=== PATIENT | female | born 1990 | race Hispanic/Latino ===

== ENCOUNTER 2016-08-28 13:36 | Emergency (ER) | payer SELFPAY ==
[2016-08-28 14:10] VITALS: BP 116/79
[2016-08-28 14:47] LABS: Urine Drugs of Abuse Note Disclamer
[2016-08-28 14:56] LABS: Bilirubin,Urine NEG (Negative); Blood,Urine SM (Negative); Ketones,Urine NEG (Negative); Leukocyte Esterase,Urine LG (Negative); Mucus,Urine 2+ /HPF; Nitrite,Urine NEG (Negative)
[2016-08-28 15:59] LABS: Alanine Aminotransferase 15 units/L (7-56); Albumin 4.2 g/dL (3.9-5); Albumin/Globulin Ratio 1.3 %; Alkaline Phosphatase 58 units/L (35-129); Anion Gap 18 mmol/L; Bilirubin,Total 0.2 mg/dL (0.1-1.2); Blood Urea Nitrogen 7 mg/dL (7-17); Calcium 9.1 mg/dL (8.4-10.2); Carbon Dioxide 24 mmol/L (22-30); Chloride 104.3 mmol/L (98-107); Glucose 87 mg/dL (65-100); Potassium 3.5 mmol/L (3.6-5.0); Sodium 143 mmol/L (137-145); Total Protein 7.5 g/dL (6.3-8.2)
[2016-08-28 16:04] LABS: Eosinophils % (Auto) 4.5 % (0.0-4.3); Hematocrit 36.7 % (30.3-42.9); Hemoglobin 11.8 gm/dl (10.1-14.3); Mean Corpuscular HGB Conc 32 % (30-34); Mean Corpuscular Volume 76 fl (79-97); Platelet Count 275 K/mm3 (140-440); Red Blood Count 4.84 M/mm3 (3.65-5.03); Red Cell Distribution Width 16.8 % (13.2-15.2); White Blood Count 6.8 K/mm3 (4.5-11.0)
[2016-08-28 16:09] LABS: Lipase 20 units/L (13-60)
[2016-08-28 16:10] LABS: Mean Corpuscular Hemoglobin 24 pg (28-32)
[2016-08-29] MEDS ORDERED: ROCEPHIN IM ONE (00:25)
[2016-08-29] MEDS ORDERED: XYLOCAINE 1% MPF 5 mL INFILTRATI ONE (00:25)
[2016-08-29] MEDS ORDERED: ZITHROMAX PO ONE (00:25)
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
== END 2016-08-29 00:47 | disposition home or self-care (01) ==
LOC: ED 13:36
DX: T74.21XA Adult sexual abuse, confirmed, initial encounter (principal)
CPT/HCPCS: 36415; 80053; 80307; 81001; 81025; 83690; 85025; 96372; 99283; J0696

== ENCOUNTER 2017-11-15 18:57 | Outpatient (CLI) | payer MEDICAID ==
[2017-11-15 19:59] VITALS: BP 123/73
== END 2017-11-15 20:45 | disposition home or self-care (01) ==
LOC: TRG 18:57
PROVIDERS: ATTEND Obstetrics & Gynecology
DX: O47.1 False labor at or after 37 completed weeks of gestation (principal); Z3A.37 37 weeks gestation of pregnancy
CPT/HCPCS: 59025

== ENCOUNTER 2017-11-17 21:51 | Outpatient (CLI) | payer MEDICAID ==
[2017-11-17 22:13] VITALS: BP 120/76
== END 2017-11-18 00:30 | disposition home or self-care (01) ==
LOC: TRG 21:51
PROVIDERS: ATTEND Obstetrics & Gynecology
DX: O47.1 False labor at or after 37 completed weeks of gestation (principal); Z3A.38 38 weeks gestation of pregnancy
CPT/HCPCS: 59025

== ENCOUNTER 2017-12-07 05:27 | Inpatient (IN) | payer MEDICAID ==
[2017-12-07] MEDS ORDERED: XYLOCAINE 2% INFILTRATI ONE (08:02)
[2017-12-07] MEDS ORDERED: STADOL IV PRN (08:02)
[2017-12-07] MEDS ORDERED: ePHEDrine SULFATE IV PRN ×2 (08:02→14:00)
[2017-12-07] MEDS ORDERED: BRETHINE SUB-Q PRN (08:02)
[2017-12-07] MEDS ORDERED: BRETHINE IVP PRN (08:02)
[2017-12-07] MEDS ORDERED: NARCAN 0.4 MG/1 ML IV PRN (08:02)
[2017-12-07] MEDS ORDERED: PHENERGAN PO PRN (08:02)
[2017-12-07] MEDS ORDERED: ZOFRAN IV PRN (08:02)
[2017-12-07] MEDS ORDERED: SUBLIMAZE IV PRN (08:02)
--- NOTE | 2017-12-07 08:02 | History and Physical Report ---
History of Present Illness Date of examination: 12/07/17 Chief complaint: Labor History of present illness: Pt is a 27yo WF EDC 11/30/17; EGA 41 0/7 weeks presents to L&D complaining of RUC's q 3-4 mins. She received late care at [facility] since 27 weeks and course has been unremarkable. records are available and GBS is Negative. 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 Family/Genetic History: diabetes, hypertension Social history: no significant social history, single - Obstetrical History Expected Date of Delivery: 11/30/17 Actual Gestation: 41 Week(s) 0 Day(s) : 7 Medications and Allergies Allergies Allergy/AdvReac Type Severity Reaction Status Date / Time No Known Allergies Allergy Unverified 01/19/14 18:30 Home Medications Medication Instructions Recorded Confirmed Last Taken Type Ferrous Sulfate 1 tab PO DAILY 01/19/14 01/19/14 12/06/17 History Pnv No.95/Ferrous Fum/Folic AC 1 tab PO QDAY 12/07/17 12/07/17 12/06/17 History [ Vitamins Tablet] Review of Systems All systems: negative - Vital Signs Vital signs: Vital Signs Temp Resp 97.8 F 20 12/07/17 05:57 12/07/17 05:57 Temp Pulse Resp BP Pulse Ox 97.6 F 82 20 128/80 97 12/07/17 07:44 12/07/17 07:58 12/07/17 07:44 12/07/17 07:48 12/07/17 07:58 - Physical Exam Breasts: Positive: deferred Cardiovascular: Regular rate Lungs: Positive: Clear to auscultation Abdomen: Positive: normal appearance Genitourinary (Female): Positive: normal external genitalia Uterus: Positive: enlarged Extremities: Positive: normal - Obstetrical FHR: category 1 Uterine Contraction Monitor Mode: External Cervical Dilatation: 4 (per nurse) Cervical Effacement Percentage: 80 (per nurse) station: -3 Uterine Contraction Pattern: Regular Uterine Tone Measurement Phase: Contraction Uterine Contraction Intensity: Moderate Results Result Diagrams: 12/07/17 08:10 All other labs normal. Assessment and Plan - Patient Problems (1) 41 weeks gestation of Onset Date: 12/07/17 Current Visit: Yes Status: Acute Plan to address problem: A: IUP @ 41 0/7 weeks in labor GBS Negative P: Admit to L&D for expectant vaginal delivery
[2017-12-07 08:45] LABS: Hematocrit 36.5 % (30.3-42.9); Hemoglobin 11.8 gm/dl (10.1-14.3); Mean Corpuscular HGB Conc 32 % (30-34); Mean Corpuscular Hemoglobin 26 pg (28-32); Mean Corpuscular Volume 81 fl (79-97); Platelet Count 240 K/mm3 (140-440); Red Blood Count 4.48 M/mm3 (3.65-5.03)
[2017-12-07 08:53] LABS: Red Cell Distribution Width 28.6 % (13.2-15.2)
[2017-12-07] MEDS ORDERED: PITOCin/NS 30 UNIT/500ML 30 UNITS/500 ML BAG IV SCH (09:00)
[2017-12-07] MEDS ORDERED: PITOCin/NS 20 UNIT/1000ML DRIP 20 UNITS/1,000 ML BAG IV SCH (09:00)
--- NOTE | 2017-12-07 09:50 | Event Note ---
Date: 12/07/17 S: Feeling pressure O; VE 5-/-1 CAT I tracing, irregular contractions A: Active labor P; Pitocin augmentation
[2017-12-07] MEDS: LACTATED RINGERS 1,000 ML IV SCH ×3 (11:43→14:56)
[2017-12-07] MEDS: PITOCin/NS 30 UNIT/500ML 30 UNITS/500 ML BAG IV SCH ×2 (11:44→15:36)
[2017-12-07] MEDS ORDERED: NARCAN 2 MG/2 ML IV PRN (14:00)
[2017-12-07] MEDS ORDERED: fentaNYL-BUPIV 2 MCG/ML-0.125% 200 MCG/100 ML BAG EPIDURAL SCH (14:00)
--- NOTE | 2017-12-07 14:01 | Anesthesia Consultation ---
Anesthesia Consult and Med Hx Date of service: 12/07/17 - Airway Anesthetic Teeth Evaluation: Good ROM Head & Neck: Adequate Mental/Hyoid Distance: Adequate Mallampati Class: Class II Intubation Access Assessment: Possibly Difficult - Pulmonary Exam CTA: Yes - Cardiac Exam Cardiac Exam: No Murmur - Pre-Operative Health Status ASA Pre-Surgery Classification: ASA3 Proposed Anesthetic Plan: Epidural - Pulmonary Hx Asthma: No COPD: No Hx Pneumonia: No - Cardiovascular System Hx Hypertension: No - Central Nervous System Hx Seizures: Yes (as a child) Hx Psychiatric Problems: No - Endocrine Hx Renal Disease: No Hx End Stage Renal Disease: No Hx Hypothyroidism: No Hx Hyperthyroidism: No - Hematic Hx Anemia: Yes Hx Sickle Cell Disease: No - Other Systems Hx Alcohol Use: No Hx Substance Use: No
--- NOTE | 2017-12-07 14:14 | Event Note ---
Date: 12/07/17 O: VE -1, AROM clear fluid, FSE applied. Epidural in. CAT I tracing. Pit at 12mu A: 41 weeks active labor P; Expect
[2017-12-07] MEDS ORDERED: TUCKS PAD TP PRN (16:23)
[2017-12-07] MEDS ORDERED: BENADRYL PO PRN (16:23)
[2017-12-07] MEDS ORDERED: TYLENOL PO PRN (16:23)
[2017-12-07] MEDS ORDERED: NORCO 5/325 PO PRN (16:23)
[2017-12-07] MEDS ORDERED: DULCOLAX PR PRN (16:23)
[2017-12-07] MEDS ORDERED: LANSINOH TP PRN (16:23)
--- NOTE | 2017-12-07 16:29 | Procedure Note ---
OB Delivery Note - Delivery Date of Delivery: 12/07/17 Surgeon: MOISE DUMONT Estimated blood loss: 100cc - Vaginal Delivery presentation: vertex Delivery position: OA Intrapartum events: none Delivery induction: none Delivery augmentation: rupture of membranes, pitocin Delivery monitor: external FHT, external uterine, internal FHT Route of delivery: Indicators for instrumentation: nonreassuring FHR tracing Delivery placenta: spontaneous Episiotomy: none Delivery laceration: none Anesthesia: epidural Delivery comments: of a viable of a viable female 8 # 3oz on 12/07/17 @ 1608 over intact perineum. Apagars 8/9. Placenta delivered 3 VCI. Mother and baby doing well. - A at 1 minute: 8 at 5 minutes: 9 (8# 3oz) Infant Gender: Female
[2017-12-07] MEDS ORDERED: SODIUM CHLORIDE FLUSH SYRINGE 10 ML IV NR (17:00)
[2017-12-07] MEDS ORDERED: MINERAL OIL PO PRN (22:00)
[2017-12-07] MEDS: MOTRIN PO SCH (23:37)
[2017-12-08 05:24] LABS: Hematocrit 33.3 % (30.3-42.9); Hemoglobin 11.2 gm/dl (10.1-14.3)
[2017-12-08] MEDS: MOTRIN PO SCH (05:49)
--- NOTE | 2017-12-08 10:02 | Progress Note ---
Assessment and Plan A: PPD#1 s/p Stable P: Routine PP care Anticipate discharge this afternoon Subjective - Subjective Date of service: 12/08/17 Principal diagnosis: Interval history: See H&P and delivery note Patient reports: appetite normal, voiding normally, pain well controlled, flatus , ambulating normally Sharon: doing well Objective - Vital Signs Latest vital signs: Vital Signs Temp Pulse Resp BP BP Pulse Ox 12/08/17 07:31 97.7 F 74 16 108/79 96 12/08/17 05:49 18 12/07/17 23:37 18 12/07/17 23:30 98.7 F 76 18 111/78 12/07/17 19:30 98.7 F 75 16 121/81 12/07/17 19:22 18 12/07/17 18:15 97.4 F L 82 18 136/85 12/07/17 17:37 75 126/73 12/07/17 17:22 73 138/77 12/07/17 17:07 73 132/76 12/07/17 16:52 76 137/76 12/07/17 16:37 78 131/72 12/07/17 16:35 81 140/78 12/07/17 16:22 85 124/68 12/07/17 16:10 101 H 100 12/07/17 16:07 83 128/71 12/07/17 16:05 109 H 100 12/07/17 16:00 91 H 100 12/07/17 15:55 78 100 12/07/17 15:52 82 136/73 12/07/17 15:50 85 100 12/07/17 15:45 85 100 12/07/17 15:40 94 H 100 12/07/17 15:38 78 136/73 12/07/17 15:35 86 100 12/07/17 15:30 78 99 12/07/17 15:25 94 H 100 12/07/17 15:22 87 136/76 12/07/17 15:20 80 100 12/07/17 15:15 86 100 12/07/17 15:10 78 100 12/07/17 15:08 75 133/73 12/07/17 15:05 78 100 12/07/17 15:00 88 100 12/07/17 14:55 80 100 12/07/17 14:52 78 133/70 07/04/18 14:50 80 100 12/07/17 14:45 87 100 12/07/17 14:40 81 100 12/07/17 14:38 83 135/71 12/07/17 14:35 91 H 100 12/07/17 14:30 98 H 100 12/07/17 14:25 95 H 100 12/07/17 14:24 86 134/75 12/07/17 14:20 98 H 99 12/07/17 14:15 95 H 99 12/07/17 14:10 85 98 12/07/17 14:07 93 H 137/64 12/07/17 14:05 94 H 91/51 98 12/07/17 14:02 91 H 120/63 12/07/17 14:00 101 H 110/59 100 12/07/17 13:58 104 H 134/77 12/07/17 13:56 89 135/67 12/07/17 13:55 80 100 12/07/17 13:54 86 131/71 12/07/17 13:52 88 132/71 12/07/17 13:50 89 100 Intake and Output 12/07/17 12/08/17 12/08/17 23:59 07:59 15:59 Intake Total 300 Output Total 600 1200 Balance -300 -1200 Intake: Intake, Free Water 300 Output: Urine 600 1200 Void 600 1200 Other: Total, Output Amount 600 800 # Voids Void 1 1 Estimated Blood Loss 100 - Exam Breasts: Present: normal Cardiovascular: Present: Regular rate, Normal S1 Lungs: Present: Clear to auscultation, Normal air movement Abdomen: Present: normal appearance, soft, normal bowel sounds. Absent: distention Vulva: both: normal Uterus: Present: firm, fundal height at umbilicus Extremities: Present: normal Deep Tendon Reflex Grade: Normal +2
--- NOTE | 2017-12-08 10:04 | Discharge Summary ---
Providers - Providers Date of Admission: 12/07/17 08:31 Date of discharge: 12/08/17 Attending physician: LUIS HURD Primary care physician: LUIS HURD Hospitalization Reason for admission: active labor, IUP at term Delivery: Procedure details: See delivery note Episiotomy: none Laceration: none Other procedures: none complications: none Discharge diagnosis: IUP at term delivered baby: female Condition at discharge: Good Disposition: DC-01 TO HOME OR SELFCARE Plan - Provider Discharge Summary Activity: routine, no sex for 6 weeks, no heavy lifting 4 weeks, no strenuous exercise Diet: routine Instructions: routine Additional instructions: [] Smoking cessation referral if applicable(refer to patient education folder for contact #) [] Refer to [facility] Booklet Call your doctor immediately for: * Fever > 100.5 * Heavy vaginal bleeding ( >1 pad per hour) * Severe persistent headache * Shortness of breath * Reddened, hot, painful area to leg or breast * Drainage or odor from incision. * Keep incision clean and dry at all times and follow doctor's instructions regarding bathing/showering - Follow up plan Follow up: LUIS HURD MD [Primary Care Provider] - 6 Weeks
[2017-12-08 19:56] VITALS: BP 119/76
== END 2017-12-08 19:05 | disposition home or self-care (01) | DRG 774 ==
LOC: TRG 05:27 → LD 08:31 → OB 18:46
PROVIDERS: ADMIT Obstetrics & Gynecology Gynecology; ATTEND Obstetrics & Gynecology Gynecology
PROC: 10E0XZZ Delivery of Products of Conception, External Approach (ICD-10-PCS; principal; 2017-12-07)
PROC: 10907ZC Drainage of Amniotic Fluid, Therapeutic from Products of Conception, Via Natural or Artificial Opening (ICD-10-PCS; 2017-12-07)
PROC: 3E0R3BZ Introduction of Anesthetic Agent into Spinal Canal, Percutaneous Approach (ICD-10-PCS; 2017-12-07)
PROC: 00HU33Z Insertion of Infusion Device into Spinal Canal, Percutaneous Approach (ICD-10-PCS; 2017-12-07)
DX: O24.92 Unspecified diabetes mellitus in childbirth (principal); O76 Abnormality in fetal heart rate and rhythm complicating labor and delivery; Z3A.41 41 weeks gestation of pregnancy; Z37.0 Single live birth; Z90.49 Acquired absence of other specified parts of digestive tract; Z83.3 Family history of diabetes mellitus; Z82.49 Family history of ischemic heart disease and other diseases of the circulatory system
CPT/HCPCS: 36415; 85014; 85018; 85027; 86592; 86850; 86900; 86901; 99211; G0463; J2590; J7120

== ENCOUNTER 2019-04-11 00:10 | Outpatient (CLI) | payer MEDICAID ==
[2019-04-11 01:17] LABS: Hematocrit 31.2 % (30.3-42.9); Hemoglobin 10.7 gm/dl (10.1-14.3); Mean Corpuscular HGB Conc 34 % (30-34); Mean Corpuscular Volume 81 fl (79-97); Platelet Count 199 K/mm3 (140-440); Red Blood Count 3.86 M/mm3 (3.65-5.03); Red Cell Distribution Width 16.5 % (13.2-15.2)
[2019-04-11 01:25] LABS: Bilirubin,Urine NEG (Negative); Blood,Urine NEG (Negative); Color,Urine Straw (Yellow); Protein,Urine <15 mg/dL mg/dL (Negative); Urobilinogen,Urine < 2.0 mg/dL (<2.0)
[2019-04-11 02:45] LABS: Alanine Aminotransferase 9 units/L (7-56); Uric Acid 3.8 mg/dL (3.5-7.6)
[2019-04-11 02:47] VITALS: BP 103/55
== END 2019-04-11 02:51 | disposition home or self-care (01) ==
LOC: TRG 00:10
PROVIDERS: ATTEND Obstetrics & Gynecology
DX: O26.893 Other specified pregnancy related conditions, third trimester (principal); Z3A.37 37 weeks gestation of pregnancy; R51 Headache; R11.2 Nausea with vomiting, unspecified; H53.8 Other visual disturbances
CPT/HCPCS: 36415; 59025; 81001; 82565; 83615; 84450; 84460; 84550; 85027

== ENCOUNTER 2019-05-02 04:45 | Inpatient (IN) | payer MEDICAID ==
[2019-05-02] MEDS ORDERED: LIDOCAINE (2%) 20 MG/1 ML VIAL 20 ML MDV INFILTRATI ONE (05:36)
[2019-05-02] MEDS ORDERED: MINERAL OIL 30 ML ORAL LIQD PO PRN (05:36)
[2019-05-02] MEDS ORDERED: ePHEDrine SULFATE 50 MG/1 ML INJ IV PRN (05:36)
[2019-05-02] MEDS ORDERED: TERBUTALINE 1 MG/1 ML INJ SUB-Q PRN (05:36)
[2019-05-02] MEDS ORDERED: fentaNYL 100 MCG/2 ML INJ IV PRN (05:36)
[2019-05-02] MEDS ORDERED: BUTORPHANOL 2 MG/1 ML INJ IV PRN (05:36)
[2019-05-02] MEDS ORDERED: ONDANSETRON 4 MG/2 ML INJ IV PRN ×2 (05:36→07:34)
[2019-05-02] MEDS ORDERED: TERBUTALINE 1 MG/1 ML INJ IVP PRN (05:36)
[2019-05-02] MEDS ORDERED: OXYTOCIN DRIP 30 UNITS/500 ML BAG IV SCH (06:00)
[2019-05-02] MEDS ORDERED: OXYTOCIN 20 UNIT/1000ML DRIP 20 UNITS/1,000 ML BAG IV SCH (06:00)
[2019-05-02] MEDS ORDERED: LACTATED RINGERS 1,000 ML IV SCH (06:00)
[2019-05-02 06:35] LABS: Hematocrit 33.5 % (30.3-42.9); Hemoglobin 11.1 gm/dl (10.1-14.3); Mean Corpuscular HGB Conc 33 % (30-34); Mean Corpuscular Volume 81 fl (79-97); Platelet Count 216 K/mm3 (140-440); Red Blood Count 4.14 M/mm3 (3.65-5.03); Red Cell Distribution Width 17.3 % (13.2-15.2)
--- NOTE | 2019-05-02 06:59 | History and Physical Report ---
History of Present Illness Date of examination: 05/02/19 Date of admission: 05/02/19 Chief complaint: Active labor History of present illness: 29 yo, @ 40 wks gestation, initiated care with [facility] at 12 wks. Her has been complicated by Elevated TSH level; Morbid obesity; rubella non-immune; and Vit D deficiency. She reports to [facility] with reports of regular painful ctxs for past 2 hrs. Reports + FM. Denies VB or LOF. Labs: A+, antibody negative; Rubella non-immune; VDRL non-reactive; HBsAg; HIV negative; Platelets 282k; Gc/Chlamydia negative; Hgb A1c 5.2; Vit D 13.7; MSAFP/Multiple markers negative; 1 hr Gtt 165; 3 hr Gtt 160, 130, 42; GBS negative. Past History Past Medical History: other (Obesity; Hx of GDM in 2013; PPD) Past Surgical History: D&C (2004) Family/Genetic History: diabetes (MGM), hypertension (MGM), other (Reneal failure- PGM; DVT - mother; Thyroid disorder - mother) - Obstetrical History Expected Date of Delivery: 05/02/19 Actual Gestation: 40 Week(s) 0 Day(s) : 8 Para: 8 Hx # Term Pregnancies: 7 Number of Pregnancies: 0 Spontaneous Abortions: 1 Induced : 0 Number of Living Children: 7 #1 Gender: Male (Twins) year: ,[birth year] Birthweight: 3.289 kg (7 lbs 8 ozs) Method of Delivery: Vaginal Gestational age at delivery: 38 Complications: none #2 Infant Gender: Male year: 2,008 Birthweight: 3.629 kg Method of Delivery: Vaginal Gestational age at delivery: 40 Complications: none #3 Infant Gender: Female year: 2,010 Birthweight: 4.082 kg Method of Delivery: Vaginal Gestational age at delivery: 39 Complications: none #4 Infant Gender: Male year: 2,012 Birthweight: 3.629 kg Method of Delivery: Vaginal Gestational age at delivery: 39 Complications: none #5 Gender: Female year: 2,014 Birthweight: 3.175 kg Method of Delivery: Vaginal Gestational age at delivery: 41 Complications: none #6 Gender: Female year: 2,018 Birthweight: 3.714 kg Method of Delivery: Vaginal Gestational age at delivery: 41 #7 year: 2,005 (SAB) Medications and Allergies Allergies Allergy/AdvReac Type Severity Reaction Status Date / Time No Known Allergies Allergy Unverified 01/19/14 18:30 Home Medications Medication Instructions Recorded Confirmed Last Taken Type Ferrous Sulfate 1 tab PO DAILY 01/19/14 12/07/17 12/06/17 History Pnv No.95/Ferrous Fum/Folic AC 1 tab PO QDAY 12/07/17 12/07/17 12/06/17 History [ Vitamins Tablet] Active Meds: Active Medications Butorphanol Tartrate (Stadol) 2 mg IV Q2H PRN PRN Reason: Pain , Severe (7-10) Ephedrine Sulfate (Ephedrine Sulfate) 10 mg IV Q2M PRN PRN Reason: Hypotension Fentanyl (Sublimaze) 100 mcg IV Q2H PRN PRN Reason: Labor Pain Last Admin: 05/02/19 06:16 Dose: 100 mcg Documented by: Oxytocin/Sodium Chloride (Pitocin/Ns 20 Unit/1000ml Drip) 20 units in 1,000 mls @ 125 mls/hr IV DIRECT TIMOTHY Oxytocin/Sodium Chloride (Pitocin/Ns 30 Unit/500ml) 30 units in 500 mls @ 1 mls /hr IV TITR TIMOTHY; Protocol Lactated Ringer's (Lactated Ringers) 1,000 mls @ 125 mls/hr IV DIRECT TIMOTHY Last Admin: 05/02/19 06:14 Dose: 125 mls/hr Documented by: Mineral Oil (Mineral Oil) 30 ml PO QHS PRN PRN Reason: Constipation Ondansetron HCl (Zofran) 4 mg IV Q8H PRN PRN Reason: Nausea And Vomiting Terbutaline Sulfate (Brethine) 0.25 mg SUB-Q ONCE PRN PRN Reason: Hyperstimulation/Hypertonicity Terbutaline Sulfate (Brethine) 0.25 mg IVP ONCE PRN PRN Reason: Hyperstimulation/Hypertonicity Review of Systems All systems: negative Genitourinary: contractions - Vital Signs Vital signs: Vital Signs Temp Resp 98 F 18 05/02/19 04:59 05/02/19 04:59 Temp Pulse Resp BP Pulse Ox 98 F 71 18 126/68 94 05/02/19 04:59 05/02/19 06:51 05/02/19 04:59 05/02/19 06:51 05/02/19 06:50 - Physical Exam Breasts: Positive: deferred Cardiovascular: Regular rate Lungs: Positive: Normal air movement Abdomen: Positive: other (gravid) Genitourinary (Female): Positive: normal external genitalia, normal perenium Vagina: Positive: normal moisture Uterus: Positive: enlarged (S=D) Extremities: Positive: normal Deep Tendon Reflex Grade: Normal +2 - Obstetrical FHR: category 1 Uterine Contraction Monitor Mode: External Cervical Dilatation: 7 Cervical Effacement Percentage: 80 station: 0 Uterine Contraction Frequency (min): 2-4 Uterine Contraction Pattern: Irregular Uterine Tone Measurement Phase: Resting Uterine Contraction Intensity: Strong/Firm Results Result Diagrams: 05/02/19 06:25 Abnormal lab results 05/02/19 Range/Units 06:25 MCH 27 L (28-32) pg RDW 17.3 H (13.2-15.2) % All other labs normal. Assessment and Plan - Patient Problems (1) 40 weeks gestation of Current Visit: Yes Status: Acute Plan to address problem: Admit to L & D Routine labor orders Pain meds as desired Anticipate (2) BMI 35.0-35.9,adult Current Visit: Yes Status: Acute (3) Rubella non-immune status, antepartum Current Visit: Yes Status: Acute (4) Rubella nonimmune status, delivered, current hospitalization Current Visit: Yes Status: Acute
[2019-05-02] MEDS ORDERED: oxyCODONE /ACETAMINOPHEN 5-325MG TAB PO PRN (07:34)
[2019-05-02] MEDS ORDERED: PROMETHAZINE 25 MG TAB PO PRN (07:34)
[2019-05-02] MEDS ORDERED: PROMETHAZINE 25 MG RECT SUPP PR PRN (07:34)
[2019-05-02] MEDS ORDERED: LANOLIN/ZINC/DIMETHICONE (LANSINOH) 7 GM TP PRN (07:34)
[2019-05-02] MEDS ORDERED: diphenhydrAMINE 25 MG CAP PO PRN (07:34)
[2019-05-02] MEDS ORDERED: WITCH HAZEL/ GLYCERIN PAD TP PRN (07:34)
--- NOTE | 2019-05-02 07:42 | Procedure Note ---
OB Delivery Note - Delivery Date of Delivery: 05/02/19 (0710) Surgeon: KEV MIKE (CNM) Estimated blood loss: <100cc - Vaginal Delivery presentation: vertex Delivery position: OA (CHANDLER) Intrapartum events: precipitous labor- <3hr Delivery induction: none Delivery augmentation: rupture of membranes Delivery monitor: external FHT, external uterine Route of delivery: Delivery placenta: spontaneous ([phone], iesha, disposed per hospital policy) Delivery cord: 3 umbilical vessels Episiotomy: none Delivery laceration: none Delivery comments: of viable, quiet female infant. Placed directly to maternal abdomen, cried after drying and manual stimulation. Cord double clamped and cut by myself after cessation of pulsation. Placenta spontaneously delivered, julian, disposed per hospital policy. Fundus firm at U1, hemostasis maintained. Perineum intact. Mother and baby safe, stable and bonding well. - A at 1 minute: 7 at 5 minutes: 9 Gender: Male (Weight: 3317 gms (7lbs 5 ozs) 19.5 inches)
[2019-05-02] MEDS: IBUPROFEN 600 MG TAB PO SCH ×2 (08:56→20:30)
[2019-05-02] MEDS: FERROUS SULFATE 325 MG TAB PO SCH ×2 (09:01→22:00)
[2019-05-02] MEDS: PRENATAL VIT27-FE FUMARATE-FOLIC ACID VIT TAB PO SCH (09:02)
[2019-05-02 20:27] LABS: Hematocrit 31.7 % (30.3-42.9); Hemoglobin 10.3 gm/dl (10.1-14.3)
[2019-05-02] MEDS ORDERED: MAGNESIUM HYDROXIDE (MOM) ORAL LIQD UDC PO PRN (22:00)
[2019-05-03] MEDS: IBUPROFEN 600 MG TAB PO SCH ×3 (01:58→14:00)
[2019-05-03] MEDS: PRENATAL VIT27-FE FUMARATE-FOLIC ACID VIT TAB PO SCH (10:13)
[2019-05-03] MEDS: FERROUS SULFATE 325 MG TAB PO SCH (10:13)
--- NOTE | 2019-05-03 15:33 | Progress Note ---
Assessment and Plan A: PPD#1 s/p Uncomplicated PP course Desires discharge home P: Routine PP care Discharge home this pm pending peds Subjective - Subjective Date of service: 05/03/19 Principal diagnosis: PPD#1 s/p Patient reports: appetite normal, voiding normally, pain well controlled, flatus, ambulating normally : doing well, other (Breast and bottle) Objective - Vital Signs Latest vital signs: Vital Signs Temp Pulse Resp BP BP Pulse Ox 05/03/19 08:25 97.8 F 80 20 117/70 95 05/02/19 16:32 98.0 F 72 18 107/69 Intake and Output 05/02/19 05/03/19 05/03/19 23:59 07:59 15:59 Intake Total 480 840 Balance 480 840 Intake: Oral 480 840 Other: Total, Intake Amount 480 240 # Voids Void 1 - Exam Breasts: Present: normal Cardiovascular: Present: Regular rate, Normal S1, Normal S2, No murmurs Lungs: Present: Clear to auscultation, Normal air movement Abdomen: Present: normal appearance, soft, normal bowel sounds. Absent: distention Vulva: both: normal Uterus: Present: firm, fundal height at umbilicus Extremities: Present: normal Deep Tendon Reflex Grade: Normal +2
--- NOTE | 2019-05-03 15:35 | Discharge Summary ---
Providers - Providers Date of Admission: 05/02/19 04:46 Date of discharge: 05/03/19 Attending physician: BASIA KUHN MD Primary care physician: BASIA KUHN MD Hospitalization Reason for admission: active labor Delivery: Procedure details: See H&P and delivery note Episiotomy: none Laceration: none Other procedures: none complications: none Discharge diagnosis: IUP at term delivered Apison baby: female Condition at discharge: Good Disposition: DC-01 TO HOME OR SELFCARE Plan - Provider Discharge Summary Activity: routine, no sex for 6 weeks, no heavy lifting 4 weeks, no strenuous exercise Diet: routine Instructions: routine Additional instructions: [] Smoking cessation referral if applicable(refer to patient education folder for contact #) [] Refer to [facility] Booklet Call your doctor immediately for: * Fever > 100.5 * Heavy vaginal bleeding ( >1 pad per hour) * Severe persistent headache * Shortness of breath * Reddened, hot, painful area to leg or breast * Drainage or odor from incision. * Keep incision clean and dry at all times and follow doctor's instructions regarding bathing/showering - Follow up plan Follow up: BASIA KUHN MD [Primary Care Provider] - 6 Weeks
[2019-05-03 16:20] VITALS: BP 118/69
== END 2019-05-03 16:45 | disposition home or self-care (01) | DRG 775 ==
LOC: TRG 04:45 → LD 04:46 → TRG 04:49 → OB 09:56
PROVIDERS: ADMIT Obstetrics & Gynecology; ATTEND Obstetrics & Gynecology
PROC: 10E0XZZ Delivery of Products of Conception, External Approach (ICD-10-PCS; principal; 2019-05-02)
DX: O62.3 Precipitate labor (principal); O99.214 Obesity complicating childbirth; E66.01 Morbid (severe) obesity due to excess calories; Z3A.40 40 weeks gestation of pregnancy; Z37.0 Single live birth
CPT/HCPCS: 36415; 85014; 85018; 85027; 86592; 86850; 86900; 86901; G0378; J0595; J2590; J3010; J7120

== ENCOUNTER 2019-06-15 07:26 | Day surgery (SDC) | payer MEDICAID ==
[2019-06-15] MEDS ORDERED: LACTATED RINGERS 1,000 ML ONE (07:56)
[2019-06-15] MEDS ORDERED: HYDROmorphone 1 MG/1 ML INJ IV PRN (08:13)
--- NOTE | 2019-06-15 08:33 | Anesthesia Consultation ---
Anesthesia Consult and Med Hx Date of service: 06/15/19 - Airway Anesthetic Teeth Evaluation: Good ROM Head & Neck: Adequate Mental/Hyoid Distance: Adequate Mallampati Class: Class II Intubation Access Assessment: Probably Good - Pulmonary Exam CTA: Yes - Cardiac Exam Cardiac Exam: RRR - Pre-Operative Health Status ASA Pre-Surgery Classification: ASA1 Proposed Anesthetic Plan: General - Pulmonary Hx Smoking: No Hx Respiratory Symptoms: No Hx Sleep Apnea: No - Cardiovascular System Hx Hypertension: No Hx Heart Attack/AMI: No - Central Nervous System Hx Seizures: Yes (As an infant; no current seizure meds) CVA: No - Gastrointestinal Hx Gastroesophageal Reflux Disease: No - Endocrine Hx Renal Disease: No Hx Liver Disease: No Hx Insulin Dependent Diabetes: No Hx Non-Insulin Dependent Diabetes: No Hx Thyroid Disease: No - Hematic Hx Anemia: No - Other Systems Hx Obesity: Yes (BMI 34) - Additional Comments Anesthesia Medical History Comments: No hx anesthetic complications.
--- NOTE | 2019-06-15 08:33 | Anesthesia Day of Surgery ---
Anesthesia Day of Surgery - Day of Surgery Patient Examined: Yes Patient H&P Reviewed: Yes Patient is NPO: Yes
[2019-06-15] MEDS ORDERED: GABAPENTIN 300 MG CAP PO NR (09:00)
[2019-06-15] MEDS ORDERED: CELECOXIB 200 MG CAP PO NR (09:00)
[2019-06-15] MEDS ORDERED: MIDAZOLAM 2 MG/2 ML INJ IV NR (09:00)
[2019-06-15] MEDS ORDERED: SCOPOLAMINE TRANSDERMAL PATCH 72 HR TD NR (09:00)
[2019-06-15] MEDS ORDERED: LACTATED RINGERS 1,000 ML IV SCH (09:00)
[2019-06-15] MEDS ORDERED: BUPIVACAINE/PF (0.5%) 5 MG/1 ML 30 ML VIAL INFILTRATI ONE ×2 (09:01→10:38)
[2019-06-15] MEDS ORDERED: ROCURONIUM 50 MG/5 ML INJ IV ONE (09:16)
[2019-06-15] MEDS ORDERED: LIDOCAINE MPF (2%) 20 MG/1 ML VIAL 5 ML ONE (09:16)
[2019-06-15] MEDS ORDERED: HYDROmorphone 1 MG/1 ML INJ ONE (09:16)
[2019-06-15] MEDS ORDERED: PROPOFOL 200 MG/20 ML VIAL IV ONE (09:16)
[2019-06-15] MEDS ORDERED: SODIUM CHLORIDE 0.9% IRR 1,500 ML BOTTLE IR ONE (10:38)
[2019-06-15] MEDS ORDERED: NEOSTIGMINE 10MG/10 ML INJ MDV ONE (11:02)
[2019-06-15] MEDS ORDERED: KETOROLAC 30 MG/1 ML INJ ONE (11:02)
[2019-06-15] MEDS ORDERED: ONDANSETRON 4 MG/2 ML INJ ONE (11:02)
[2019-06-15] MEDS ORDERED: GLYCOPYRROLATE 0.4 MG/2 ML INJ ONE (11:02)
--- NOTE | 2019-06-15 11:18 | Post Operative Note ---
Pre-op diagnosis: sterilization Post-op diagnosis: same Findings: Normal uterus tubes and ovaries were noted except for some mild filmy adhesions around the distal half of the left fallopian tube and ovary. General abdominal survey was also within normal limits. Procedure: Lap BTL with Filschie clips Patient was taken to the operating room and prepped and draped in usual fashion. Campa catheter and acorn uterine manipulator were placed without difficulty. Attention was then turned the abdomen where in the umbilicus a 5 mm incision was made. Abdomen was tented up and the Veress needle placed in the abdominal cavity. Abdomen appropriately insufflated with CO2 gas. Veress needle removed and the 5 mm trocar was placed. Placement confirmed with the camera. Patient was then placed in Trendelenburg and attention was turned the suprapubic region more 8 mm incision was made in the midline about 2 fingerbreadths superior to the pubic symphysis. 8 mm trocar was placed under direct visualization without difficulty. Attention was first turned to the right fallopian tube with a Filshie clip was applied. The width of the tube was encompassed and the clip was placed without difficulty. Attention was then turned to the left tube where a Filshie clip was applied there with equal success and without difficulty. The area where the clip was applied had no adhesions around it. Good hemostasis noted throughout. Abdomen fully desufflated. Trochars were removed and trocar sites were closed with 4-0 Monocryl in a subcuticular fashion. Local marcaine was applied to both sites afterwards. [place] uterine manipulator and Campa were removed. Procedure concluded this point. Patient tolerated the procedure well. All instrument and lap counts were correct. Patient taken to the recovery room in stable condition. Anesthesia: GETA Surgeon: CANDACE DACOSTA Estimated blood loss: minimal Pathology: none Condition: stable Disposition: PACU
--- NOTE | 2019-06-15 11:21 | Discharge Summary ---
Providers - Providers Date of discharge: 06/15/19 Attending physician: CANDACE DACOSTA Primary care physician: BASIA KUHN MD Hospitalization Procedure: bilateral tubal ligation Condition at discharge: Stable Disposition: DC-01 TO HOME OR SELFCARE Plan - Discharge Medications Prescriptions: Ibuprofen [Motrin 600 MG tab] 600 mg PO Q6H PRN #30 tablet PRN Reason: Pain Acetaminophen/Codeine [Tylenol /Codeine # 3 tab] 1 tab PO Q4HR PRN #20 tablet PRN Reason: Pain - Provider Discharge Summary Additional instructions: [] Smoking cessation referral if applicable(refer to patient education folder for contact #) [] Refer to [facility] Booklet Call your doctor immediately for: * Fever > 100.5 * Heavy vaginal bleeding ( >1 pad per hour) * Severe persistent headache * Shortness of breath * Reddened, hot, painful area to leg or breast * Drainage or odor from incision. * Keep incision clean and dry at all times and follow doctor's instructions regarding bathing/showering - Follow up plan Follow up: CANDACE DACOSTA MD [Staff Physician] - 14 Days
[2019-06-15 13:19] VITALS: BP 120/68
--- NOTE | 2019-06-15 13:56 | Post Anesthesia Evaluation ---
- Post Anesthesia Evaluation Patient Participated: Yes Airway Patent: Yes Stable Respiratory Function: Yes Nausea/Vomiting: No Temp > 96.8F: Yes Pain Manageable: Yes Adequeate Hydration: Yes Anesthesia Complications: No
== END 2019-06-15 07:27 | disposition home or self-care (01) ==
LOC: OR 07:26
PROVIDERS: ATTEND Obstetrics & Gynecology
DX: Z30.2 Encounter for sterilization (principal); E66.9 Obesity, unspecified; F32.9 Major depressive disorder, single episode, unspecified; F41.9 Anxiety disorder, unspecified; G43.909 Migraine, unspecified, not intractable, without status migrainosus; Z79.899 Other long term (current) drug therapy; Z90.49 Acquired absence of other specified parts of digestive tract; Z68.34 Body mass index [BMI] 34.0-34.9, adult; Z98.890 Other specified postprocedural states; Z83.3 Family history of diabetes mellitus; Z82.49 Family history of ischemic heart disease and other diseases of the circulatory system
CPT/HCPCS: 58671; 81025; J1170; J1885; J2250; J2405; J2704; J2710; J7120